=== PATIENT | male | born 1955 | race Caucasian/White ===

== ENCOUNTER → 2020-12-09 | Outpatient (CLI) | payer MEDICARE ==
[~2020-12-09] MED LIST: NORCO 7.5-3251 EACH PO; OMNICEF 300 MG300 MG PO; ZITHROMAX500 MG PO
== END ==
LOC: KOH-I 14:24
DX: M25.561 Pain in right knee (principal); Z96.651 Presence of right artificial knee joint
CPT/HCPCS: 73562